=== PATIENT | female | born 1985 | race Caucasian/White ===

== ENCOUNTER 2019-04-22 10:06 | Emergency (ER) | payer MEDICAID ==
[~2019-04-22] VITALS: Ht 152.4 cm; Wt 65.0 kg
[~2019-04-22 10:06] MED LIST: ACET325T33 PO; AUG875 PO; BEN25 PO; CEPH-443 PO; CIPR500T4 PO; DOCU-144 PO; IBUP-1542 PO; MED4DP PO; NPH10OT RIGHT EAR; PREN1TAB49
[2019-04-22 10:20] VITALS: BP 95/51; PULSE 68; RESP 20; Ht 152.4 cm; Wt 65.0 kg
[2019-04-22] MEDS ORDERED: FAMOTIDINE 20 MG TAB PO ONE (11:00)
[2019-04-22] MEDS ORDERED: DEXAMETHASONE 10 MG/ML 1 ML INJ IM ONE (11:00)
--- NOTE | 2019-04-22 15:49 | ERD ---
ER Documentation Chief Complaint Chief Complaint itchiness all over the body x 4 days HPI 33-year-old female presenting with rash all over her body. Patient had no cough. No shortness of breath. No facial swelling. Has not taken medications for her symptoms. Had this happen 4 years ago but resolved on its own. Denies other medical problems. NKDA. Surgical history denies. Up-to-date on vaccinations ROS All systems reviewed and are negative except as per history of present illness. Medications Home Meds Active Scripts Diphenhydramine Hcl* (Benadryl*) 25 Mg Cap, 25 MG PO Q6, #30 CAP Prov:MILAD MADISON PA-C 04/22/19 Methylprednisolone* (Medrol* DOSE PACK) 4 Mg/Dose-Pack Tab.ds.pk, 4 MG PO . DIRECTED, #1 PACKET Prov:MILAD MADISON PA-C 04/22/19 Acetaminophen* (Tylenol*) 325 Mg Tablet, 1 TAB PO Q6 PRN for PAIN AND OR ELEVATED TEMP, #20 TAB Prov:JOHN TREJO PA-C 06/30/16 Ciprofloxacin Hcl* (Ciprofloxacin Hcl*) 500 Mg Tablet, 500 MG PO BID for 10 Days, TAB Prov:CARLIN TIPTON NP 07/03/15 Amoxicillin-Clavulanate K* (Augmentin*) 875 Mg Tab, 875 MG PO BID for 10 Days Prov:CARLIN TIPTON NP 07/03/15 Ibuprofen* (Motrin*) 600 Mg Tab, 600 MG PO Q6, #20 TAB Prov:DANDRE GUADALUPE MD 06/29/15 Neomycin/Polymyxin/Hydrocort* (Cortisporin* Otic) 10 Ml Susp, 4 DROP RIGHT EAR QID for 7 Days, EA Prov:DANDRE GUADALUPE MD 06/29/15 Cephalexin* (Keflex*) 500 Mg Capsule, 500 MG PO QID for 10 Days, CAP Prov:DANDRE GUADALUPE MD 06/29/15 Reported Medications Vits W-Ca,Fe,Fa(<1MG) () 1 Tab Tablet 07/12/10 Vits W-Ca,Fe,Fa(<1MG) () 1 Tab Tablet 5/14/10 Allergies Allergies: Coded Allergies: No Known Drug Allergies (Verified Allergy, Unknown, 04/22/19) PMhx/Soc Medical and Surgical Hx: pt denies Medical Hx, pt denies Surgical Hx History of Surgery: No Anesthesia Reaction: No Hx Neurological Disorder: No Hx Respiratory Disorders: No Hx Cardiac Disorders: No Hx Psychiatric Problems: No Hx Miscellaneous Medical Probl: No Hx Alcohol Use: No Hx Substance Use: No Hx Tobacco Use: No Smoking Status: Never smoker FmHx Family History: No diabetes, No coronary disease, No other Physical Exam Vitals Vital Signs Date Temp Pulse Resp B/P (MAP) Pulse Ox O2 O2 Flow FiO2 Time Delivery Rate 04/22/19 98.6 68 20 95/51 (66) 96 10:20 Physical Exam GENERAL: The patient is well-appearing, well-nourished, in no acute distress HEENT: Atraumatic. Conjunctivae are pink. Pupils equal, round, and reactive to light. There is no scleral icterus. Tympanic membranes clear bilaterally. Oropharynx clear. CHEST: Clear to auscultation bilaterally. There are no rales, wheezes or rhonchi. HEART: Regular rate and rhythm. No murmurs, clicks, rubs or gallops. No S3 or S4. ABDOMEN:Soft, nontender and nondistended. Good bowel sounds. No rebound or guarding. No gross peritonitis. No gross organomegaly or masses. EXTREMITIES: Equal pulses bilaterally. There is no peripheral clubbing, cyanosis or edema. No focal swelling or erythema. Full range of motion. Grossly neurovascularly intact. NEUROLOGIC: Alert and oriented. Cranial nerves II through XII intact. Motor strength in all 4 extremities with 5 out of 5 strength. Sensation grossly intact. Normal speech and gait. SKIN: Urticarial rash noted on torso and arms. No vesicles or pustules. Results 24 hrs Current Medications Medications Dose Sig/Rachid Start Time Status Last (Trade) Ordered Route PRN Stop Time Admin Dose Reason Admin 10 mg ONCE ONCE 04/22/19 DC 04/22/19 Dexamethasone IM 11:00 10:53 (Decadron) 04/22/19 11:01 Famotidine 20 mg ONCE ONCE 04/22/19 DC 04/22/19 (Pepcid) PO 11:00 10:50 04/22/19 11:01 Procedures/MDM ER course: Pepcid and Decadron given in ED. Patient is driving so no Benadryl was given MDM: 33-year-old female presenting with rash. Patient has findings consistent with urticaria and allergic reaction. Patient is discharged with strict ER precautions and told to follow-up with primary care within 1 to 2 days for close evaluation. Patient is told symptoms change or worsen to return immediately to the ER. All questions answered at discharge Departure Diagnosis: Primary Impression: Urticaria Additional Impression: Itching Condition: Stable Patient Instructions: Hives Referrals: [facility] YOU HAVE RECEIVED A MEDICAL SCREENING EXAM AND THE RESULTS INDICATE THAT YOU DO NOT HAVE A CONDITION THAT REQUIRES URGENT TREATMENT IN THE EMERGENCY DEPARTMENT. FURTHER EVALUATION AND TREATMENT OF YOUR CONDITION CAN WAIT UNTIL YOU ARE SEEN IN YOUR DOCTORS OFFICE WITHIN THE NEXT 1-2 DAYS. IT IS YOUR RESPONSIBILITY TO MAKE AN APPOINTMENT FOR FOLOW-UP CARE. IF YOU HAVE A PRIMARY DOCTOR --you should call your primary doctor and schedule an appointment IF YOU DO NOT HAVE A PRIMARY DOCTOR YOU CAN CALL OUR PHYSICIAN REFERRAL HOTLINE AT IF YOU CAN NOT AFFORD TO SEE A PHYSICIAN YOU CAN CHOSE FROM THE FOLLOWING [facility] [address] [facility] [facility] [address] [facility] [facility] [address] [facility] [facility] [address] [facility]. [facility] [address] [facility] [facility]. [address] Additional Instructions: FOLLOW UP WITH YOUR PRIMARY CARE PHYSICIAN TOMORROW.Return to this facility if you are not improving as expected. MILAD MADISON PA-C Apr 22, 2019 15:49
== END 2019-04-22 11:08 | disposition home or self-care (01) ==
LOC: FTE 10:06
DX: L50.9 Urticaria, unspecified (principal); L29.9 Pruritus, unspecified
CPT/HCPCS: 96372; J1100; Z7502; Z7610

== ENCOUNTER 2019-04-23 11:58 | Emergency (ER) | payer MEDICAID ==
[~2019-04-23] VITALS: Wt 66.4 kg
[2019-04-23 12:02] VITALS: BP 100/51; PULSE 78; RESP 18
--- NOTE | 2019-04-23 12:32 | ERD ---
ER Documentation Chief Complaint Chief Complaint CONSTIPATION HPI 33-year-old female is here with with constipation. Last bowel movement was yesterday but difficult. No blood in the stool. Also was seen here yesterday for allergic reaction and given prednisone, Benadryl, and Claritin and wants to make sure that these medications are okay and she is currently breast-feeding. No fever. No lip or tongue swelling. ROS All systems reviewed and are negative except as per history of present illness. Medications Home Meds Active Scripts Docusate Sodium* (Colace*) 100 Mg Capsule, 100 MG PO TID, #30 CAP Prov:RAYRAY MOYA PA-C 04/23/19 Diphenhydramine Hcl* (Benadryl*) 25 Mg Cap, 25 MG PO Q6, #30 CAP Prov:MILAD MADISON PA-C 04/22/19 Methylprednisolone* (Medrol* DOSE PACK) 4 Mg/Dose-Pack Tab.ds.pk, 4 MG PO . DIRECTED, #1 PACKET Prov:MILAD MADISON PA-C 04/22/19 Acetaminophen* (Tylenol*) 325 Mg Tablet, 1 TAB PO Q6 PRN for PAIN AND OR ELEVATED TEMP, #20 TAB Prov:JOHN TREJO PA-C 06/30/16 Ciprofloxacin Hcl* (Ciprofloxacin Hcl*) 500 Mg Tablet, 500 MG PO BID for 10 Days, TAB Prov:CARLIN TIPTON NP 07/03/15 Amoxicillin-Clavulanate K* (Augmentin*) 875 Mg Tab, 875 MG PO BID for 10 Days Prov:CARLIN TIPTON NP 07/03/15 Ibuprofen* (Motrin*) 600 Mg Tab, 600 MG PO Q6, #20 TAB Prov:DANDRE GUADALUPE MD 06/29/15 Neomycin/Polymyxin/Hydrocort* (Cortisporin* Otic) 10 Ml Susp, 4 DROP RIGHT EAR QID for 7 Days, EA Prov:DANDRE GUADALUPE MD 06/29/15 Cephalexin* (Keflex*) 500 Mg Capsule, 500 MG PO QID for 10 Days, CAP Prov:DANDRE GUADALUPE MD 06/29/15 Reported Medications Vits W-Ca,Fe,Fa(<1MG) () 1 Tab Tablet 07/12/10 Vits W-Ca,Fe,Fa(<1MG) () 1 Tab Tablet 02/03/10 Allergies Allergies: Coded Allergies: No Known Drug Allergies (Verified Allergy, Unknown, 04/22/19) PMhx/Soc History of Surgery: No Anesthesia Reaction: No Hx Neurological Disorder: No Hx Respiratory Disorders: No Hx Cardiac Disorders: No Hx Psychiatric Problems: No Hx Miscellaneous Medical Probl: No Hx Alcohol Use: No Hx Substance Use: No Hx Tobacco Use: No FmHx Family History: No diabetes Physical Exam Vitals Vital Signs Date Temp Pulse Resp B/P (MAP) Pulse Ox O2 O2 Flow FiO2 Time Delivery Rate 04/23/19 98.0 78 18 100/51 99 12:02 (67) Physical Exam INITIAL VITAL SIGNS: Reviewed by me GENERAL: Awake, alert and oriented x 4, well appearing, nontoxic, speaking in full sentences. No acute distress HEAD: Atraumatic NECK: Supple. No masses. Full range of motion. No meningismus. No midline tenderness. EYES: EOMI. PERRL. THROAT: No tonilar erythema or edema. No exudates. Uvula midline. No kissing tonsils. RESPIRATORY: Clear to auscultation bilaterally. Symmetric chest wall rise. No wheezing or rales. No accessory muscle use. CV: Regular rate and rhythm. No murmurs, rubs, or gallops. BACK: No midline tenderness to palpation. No step-offs. SKIN: Hives on upper extremities bilaterally Procedures/MDM Discussed patient's medications with her. She can take prednisone and use hydrocortisone cream [id number] but should avoid long-term Benadryl use and long-term Claritin use. There is no signs of anaphylaxis. She was given Colace for her constipation. Low suspicion for obstruction. Patient counseled regarding my diagnostic impression and care plan. Prior to discharge all questions answered. Pt agrees with treatment plan and understands strict return precautions. Pt is instructed to follow up with primary care provider within 24- 48 hours. Precautionary instructions provided including instructions to return to the ER if not improving or for any worsening or changing symptoms or concerns. Departure Diagnosis: Primary Impression: Urticaria Condition: Stable Patient Instructions: Hives Additional Instructions: Llame al doctor MARCELLUS y anabela jose alejandro BORIS PARA DENTRO DE 1-2 KELLEY.Dgale a la secretaria que nosotros le instruimos hacer esta boris.Avise o llame si chambers condicin se empeora antes de la boris. Regresa aqui si peor o no mejor. RAYRAY MOYA PA-C Apr 23, 2019 12:32
== END 2019-04-23 12:30 | disposition home or self-care (01) ==
LOC: E/R 11:58
DX: L50.9 Urticaria, unspecified (principal)
CPT/HCPCS: 99282